=== PATIENT | female | born 1975 | race Caucasian/White ===

== ENCOUNTER 2021-05-28 10:49 | Emergency (ER) | payer BC ==
[~2021-05-28] VITALS: Ht 167.6 cm; Wt 83.5 kg
[2021-05-28] MEDS ORDERED: ZYRTEC10 M3 PO ×2 (11:32→11:38)
[2021-05-28] MEDS ORDERED: OBREDON 2.5-20118 ML PO (11:38)
[2021-05-28] MEDS ORDERED: ROBITUSSIN COU118 M4 PO (11:44)
[2021-05-28] MEDS ORDERED: TESSALON PERLE100 MG PO (11:44)
== END 2021-05-28 12:21 | disposition home or self-care (01) ==
LOC: FSED 10:54
DX: R51.9 Headache, unspecified (principal); J06.9 Acute upper respiratory infection, unspecified
CPT/HCPCS: 99283